=== PATIENT | male | born 1995 | race Caucasian/White ===

== ENCOUNTER 2016-09-20 15:30 | Inpatient (IN) | payer BC, OTHER ==
[~2016-09-20] VITALS: Ht 177.8 cm; Wt 68.0 kg
[2016-09-21 11:44] LABS: *AMPHETAMINE, URINE NEGATIVE (NEGATIVE); *BARBITURATE, URINE NEGATIVE (NEGATIVE); *CANNABINOID, URINE NEGATIVE (NEGATIVE); *COCCAINE, URINE NEGATIVE (NEGATIVE); *OPIATE, URINE POSITIVE (NEGATIVE); *PHENCYCLIDINE SCREEN,URINE NEGATIVE (NEGATIVE)
[2016-09-21] MEDS ORDERED: HYDROXYZINE PAMOATE 25 MG CAPSULE PO PRN (13:00)
[2016-09-21] MEDS ORDERED: diphenhydrAMINE 50 MG CAPSULE PO PRN (13:00)
[2016-09-21] MEDS ORDERED: DICYCLOMINE HCL 20 MG TABLET PO PRN (13:00)
[2016-09-21] MEDS ORDERED: MAGNESIUM HYDROXIDE 30 ML LIQUID UDC PO PRN (13:00)
[2016-09-21] MEDS ORDERED: BUPRENORPHINE HCL 2 MG TAB.SUBL SL PRN (13:00)
[2016-09-21] MEDS ORDERED: LOPERAMIDE HCL 2 MG CAPSULE PO PRN ×2 (13:00)
[2016-09-21] MEDS ORDERED: MAG HYDROX/AL HYDROX/SIMETH 30 ML LIQUID UDC PO PRN (13:00)
[2016-09-21] MEDS ORDERED: ACETAMINOPHEN 325 MG TABLET PO PRN (13:00)
[2016-09-21] MEDS ORDERED: ONDANSETRON 4 MG/2 ML VIAL IM PRN (13:00)
[2016-09-21] MEDS ORDERED: MIRALAX 17 GM POWD.PACK PO PRN (13:00)
[2016-09-21 15:03] LABS: BASOPHILS % (AUTO) 0.6 % (0.0-2.0); EOSINOPHILS # (AUTO) 0.1 K/uL (0.0-0.7); EOSINOPHILS % (AUTO) 2.2 % (0.0-7.0); HEMATOCRIT 43.8 % (36.7-47.1); HEMOGLOBIN 15.3 g/dL (12.5-16.3); LYMPHOCYTES # (AUTO) 1.2 K/uL (40.0-85.0); LYMPHOCYTES % (AUTO) 25.5 % (20.5-74.5); MEAN CORPUSCULAR HEMOGLOBIN 30.4 uug (23.8-33.4); MEAN CORPUSCULAR HGB CONC 35 g/dL (32.5-36.3); MEAN CORPUSCULAR VOLUME 87.1 fL (73.0-96.2); MONOCYTES # (AUTO) 0.3 K/uL (2.0-10.0); MONOCYTES % (AUTO) 6.6 % (0-11); NEUTROPHILS % (AUTO) 65.1 % (31.5-64.5); PLATELET COUNT (AUTO) 199 K/uL (152-348); RED BLOOD CELL COUNT(AUTO) 5.02 MIL/uL (4.06-5.63); RED CELL DISTRIBUTION WIDTH 11.4 % (12.1-16.2); WHITE BLOOD COUNT (AUTO) 4.6 K/uL (3.6-10.2)
[2016-09-21] MEDS: METHOCARBAMOL 750 MG TABLET PO PRN ×2 (15:10→22:52)
[2016-09-21] MEDS: CLONIDINE HCL 0.1 MG TABLET PO PRN ×2 (15:10→20:56)
[2016-09-21 15:14] LABS: ALANINE AMINOTRANSFERASE 58 U/L (16-63); ALBUMIN 4.1 g/dL (3.4-5.0); ALKALINE PHOSPHATASE 93 U/L (50-136); ASPARTATE AMINOTRANSFERASE 39 U/L (15-37); BILIRUBIN,TOTAL 0.9 mg/dL (0.2-1.0); CALCIUM 8.7 mg/dL (8.5-10.1); CARBON DIOXIDE 28 mmol/L (21-32); CHLORIDE 105 mmol/L (98-107); CREATININE 0.8 mg/dL (0.6-1.3); ETHANOL < 3 MG/DL (0-0); GFR 123 mL/min (>60); GLUCOSE 115 mg/dL (74-106); MAGNESIUM 2.2 mg/dL (1.8-2.4); POTASSIUM 4.6 mmol/L (3.5-5.1); SODIUM SERUM 142 mmol/L (136-145); TOTAL PROTEIN, SERUM 7.4 g/dL (6.4-8.2); UREA NITROGEN, BLOOD 13 mg/dL (7-18)
[2016-09-21 15:23] LABS: THYROID STIMULATING HORMONE 0.172 mIU/mL (0.358-3.740)
[2016-09-21 15:30] LABS: HIV-1/2 ANTIBODY NON REACTIVE (NONREACTIVE)
[2016-09-21 15:31] LABS: HIV-1 p24 ANTIGEN NON REACTIVE (NONREACTIVE)
[2016-09-21 16:00] VITALS: BP 100/64
[2016-09-21] MEDS: ONDANSETRON ODT 4 MG TAB.RAPDIS SL PRN (18:37)
[2016-09-21 20:00] VITALS: BP 116/66
[2016-09-21] MEDS: GABAPENTIN 300 MG CAPSULE PO SCH (20:50)
[2016-09-21] MEDS ORDERED: diphenhydrAMINE 50 MG CAPSULE ONE (22:55)
[2016-09-22] VITALS: BP 108/64
[2016-09-22 04:00] VITALS: BP 104/64
[2016-09-22 08:00] VITALS: BP 115/77
[2016-09-22] MEDS: GABAPENTIN 300 MG CAPSULE PO SCH ×3 (08:01→20:32)
[2016-09-22] MEDS: MULTIVITAMINS,THERAPEUTIC TABLET PO SCH (08:01)
[2016-09-22] MEDS: BUPRENORPHINE HCL 2 MG TAB.SUBL SL SCH ×3 (08:02→20:32)
[2016-09-22] MEDS ORDERED: TUBERCULIN,PURIF.PROT.DERIV. 5 TU/0.1 ML TEST ID ONE (09:00)
[2016-09-22 12:00] VITALS: BP 113/74
[2016-09-22] MEDS: ONDANSETRON ODT 4 MG TAB.RAPDIS SL PRN ×2 (14:08→20:32)
[2016-09-22] MEDS: IBUPROFEN 600 MG TABLET PO PRN ×2 (14:08→20:32)
[2016-09-22] MEDS ORDERED: 4 DAY TAPER BUPRENORPHINE -SERENITY PROTOCOL SL PRN (15:00)
[2016-09-22 16:00] VITALS: BP 122/69
[2016-09-22] MEDS: METHOCARBAMOL 750 MG TABLET PO PRN (20:32)
[2016-09-22 23:00] VITALS: BP 131/87
[2016-09-23] VITALS: BP 125/87
[2016-09-23 04:00] VITALS: BP 95/57
[2016-09-23 08:00] VITALS: BP 115/71
[2016-09-23] MEDS: GABAPENTIN 300 MG CAPSULE PO SCH ×3 (08:03→21:19)
[2016-09-23] MEDS: MULTIVITAMINS,THERAPEUTIC TABLET PO SCH (08:03)
[2016-09-23] MEDS: METHOCARBAMOL 750 MG TABLET PO PRN (08:03)
[2016-09-23] MEDS ORDERED: BUPRENORPHINE HCL 2 MG TAB.SUBL SL SCH (09:00)
[2016-09-23 12:00] VITALS: BP 124/83
[2016-09-23] MEDS: BACLOFEN 20 MG TABLET PO SCH ×2 (15:18→21:19)
[2016-09-23] MEDS: CLONIDINE HCL 0.1 MG TABLET PO SCH ×2 (15:18→21:19)
[2016-09-23] MEDS: BUPRENORPHINE HCL 2 MG TAB.SUBL SL SCH ×2 (15:18→21:19)
[2016-09-23] MEDS: DICYCLOMINE HCL 20 MG TABLET PO SCH ×2 (15:18→21:18)
[2016-09-23 16:00] VITALS: BP 113/74
[2016-09-23 20:00] VITALS: BP 119/84
[2016-09-24] VITALS: BP 109/70
[2016-09-24 04:00] VITALS: BP 101/60
[2016-09-24 04:06] LABS: HCV AB >11.0 s/co ratio (0.0-0.9); HEPATITIS B CORE AB, IgM Negative (Negative); HEPATITIS B SURFACE AG Negative (Negative)
[2016-09-24 07:41] LABS: CALCIUM 9.2 mg/dL (8.5-10.1); MAGNESIUM 2.1 mg/dL (1.8-2.4); POTASSIUM 4.9 mmol/L (3.5-5.1)
[2016-09-24 08:00] VITALS: BP 105/62
[2016-09-24] MEDS: GABAPENTIN 300 MG CAPSULE PO SCH ×3 (08:40→21:21)
[2016-09-24] MEDS: BUPRENORPHINE HCL 2 MG TAB.SUBL SL SCH ×3 (08:40→21:23)
[2016-09-24] MEDS: BACLOFEN 20 MG TABLET PO SCH ×3 (08:41→21:20)
[2016-09-24] MEDS: CLONIDINE HCL 0.1 MG TABLET PO SCH ×3 (08:41→21:27)
[2016-09-24] MEDS: MULTIVITAMINS,THERAPEUTIC TABLET PO SCH (08:41)
[2016-09-24] MEDS: DICYCLOMINE HCL 20 MG TABLET PO SCH ×3 (08:41→21:20)
[2016-09-24 12:00] VITALS: BP 112/69
[2016-09-24] MEDS: IBUPROFEN 600 MG TABLET PO PRN ×2 (14:34→21:21)
[2016-09-24 16:00] VITALS: BP 107/61
[2016-09-24 20:00] VITALS: BP 108/70
[2016-09-24] MEDS ORDERED: CLONIDINE HCL 0.1 MG TABLET ONE (21:36)
[2016-09-25] VITALS: BP 102/57
[2016-09-25] MEDS: ONDANSETRON ODT 4 MG TAB.RAPDIS SL PRN (07:18)
[2016-09-25 08:00] VITALS: BP 116/82
[2016-09-25 08:17] LABS: T3 TOTAL 130 ng/dL (71-180)
[2016-09-25] MEDS: DICYCLOMINE HCL 20 MG TABLET PO SCH ×3 (08:40→20:28)
[2016-09-25] MEDS: BACLOFEN 20 MG TABLET PO SCH ×2 (08:40→14:23)
[2016-09-25] MEDS: CLONIDINE HCL 0.1 MG TABLET PO SCH (08:40)
[2016-09-25] MEDS: GABAPENTIN 300 MG CAPSULE PO SCH ×3 (08:41→20:28)
[2016-09-25] MEDS: MULTIVITAMINS,THERAPEUTIC TABLET PO SCH (08:41)
[2016-09-25] MEDS ORDERED: BUPRENORPHINE HCL 2 MG TAB.SUBL SL SCH (09:00)
[2016-09-25 11:15] LABS: VIT D, 25-HYDROXY 35.5 ng/mL (30.0-100.0)
[2016-09-25 12:00] VITALS: BP 111/56
[2016-09-25 14:33] LABS: *AMPHETAMINE, URINE NEGATIVE (NEGATIVE); *BARBITURATE, URINE NEGATIVE (NEGATIVE); *CANNABINOID, URINE NEGATIVE (NEGATIVE); *COCCAINE, URINE NEGATIVE (NEGATIVE); *OPIATE, URINE NEGATIVE (NEGATIVE); *PHENCYCLIDINE SCREEN,URINE NEGATIVE (NEGATIVE)
[2016-09-25] MEDS ORDERED: CLONIDINE HCL 0.1 MG TABLET PO PRN (15:45)
[2016-09-25] MEDS ORDERED: BACLOFEN 20 MG TABLET PO PRN (15:45)
[2016-09-25 16:00] VITALS: BP 104/60
[2016-09-25 20:00] VITALS: BP 113/77
[2016-09-25] MEDS ORDERED: DICY20TA28 PO (22:24)
[2016-09-25] MEDS ORDERED: HYDR-3895 PO (22:24)
[2016-09-25] MEDS ORDERED: Baclofen PO (22:24)
[2016-09-25] MEDS ORDERED: Gabapentin PO (22:24)
[2016-09-25] MEDS ORDERED: DIPH50CA37 PO (22:24)
[2016-09-25] MEDS ORDERED: Ibuprofen PO (22:24)
[2016-09-26] VITALS: BP 133/80
[2016-09-26 04:06] LABS: *THYROGLOBULIN <1.0 IU/mL (0.0-0.9)
[2016-09-26] MEDS: DICYCLOMINE HCL 20 MG TABLET PO SCH (08:24)
[2016-09-26] MEDS: GABAPENTIN 300 MG CAPSULE PO SCH (08:24)
[2016-09-26] MEDS: MULTIVITAMINS,THERAPEUTIC TABLET PO SCH (08:25)
[2016-09-26 11:40] LABS: *CODEINE Negative (Cutoff=300); *HYDROMORPHONE Negative (Cutoff=300); *OPIATES Positive ng/mL (Cutoff=300)
== END 2016-09-26 09:48 | disposition other institution (70) | DRG 895 ==
LOC: SRC 09-21 10:45
PROVIDERS: ADMIT Internal Medicine; ATTEND Internal Medicine
PROC: HZ2ZZZZ Detoxification Services for Substance Abuse Treatment (ICD-10-PCS; principal; 2016-09-21)
PROC: HZ41ZZZ Group Counseling for Substance Abuse Treatment, Behavioral (ICD-10-PCS; 2016-09-22)
PROC: HZ31ZZZ Individual Counseling for Substance Abuse Treatment, Behavioral (ICD-10-PCS; 2016-09-24)
DX: F11.23 Opioid dependence with withdrawal (principal); B19.20 Unspecified viral hepatitis C without hepatic coma; F17.210 Nicotine dependence, cigarettes, uncomplicated; F41.9 Anxiety disorder, unspecified; E07.81 Sick-euthyroid syndrome; Z81.1 Family history of alcohol abuse and dependence; Z81.3 Family history of other psychoactive substance abuse and dependence
CPT/HCPCS: 36415; 70030-TC; 80307; 80361; 82306; 83735; 84443; 84480; 85025; 86580; 86592; 86705; 86803; 87340; 87521; 87806; A4663; G6040-TC; Q0162; Q0163